=== PATIENT | female | born 1980 | race Caucasian/White ===

== ENCOUNTER 2020-07-16 11:30 | Observation (INO) ==
[2020-07-16 12:14] LABS: Basophils % 0.2 % (0.0-0.8); Eosinophils # 0.3 10*3/uL (0.0-0.87); Eosinophils % 4.1 % (0.00-10.9); Hematocrit 42.3 VOL% (35.7-47.0); Hemoglobin 13.6 GM/DL (12.0-16.0); Immature Granulocytes % 0.4 %; Immature Granulocytes Absolute 0.03 #; Lymphocytes # 1.6 10*3/uL (1.4-4.0); Lymphocytes % 19.1 % (21.3-54.2); Mean Corpuscular HGB Conc 32.2 GM/DL (32-36); Mean Corpuscular Volume 84.6 FL (87-102); Mean Platelet Volume 9.9 FL (9.6-12.0); Monocytes % 6.7 % (1.7-12.7); Neutrophils % 69.5 % (38.7-73.9); Platelet Count 255 T/CUMM (130-400); Red Cell Distribution Width 14.6 % (9.3-17.3); White Blood Count 8.4 T/CUMM (4-12)
[2020-07-16 12:18] LABS: Albumin 3.7 G/DL (3.4-5.0); Bilirubin,Total 0.4 MG/DL (0.2-1.0); Calcium 8.8 MG/DL (8.5-10.1); Osmolality,Calculated 275.7 MOS/KG (273-304); Total Protein 7.6 G/DL (6.4-8.3)
[2020-07-16] MEDS ORDERED: ATORVASTATIN 40 MG TABLET PO STA (13:28)
[2020-07-16 16:14] LABS: Troponin I < 0.015 NG/ML (0.00-0.045)
[2020-07-16] MEDS ORDERED: ACETAMINOPHEN 325 MG TABLET PO PRN (16:32)
[2020-07-16] MEDS ORDERED: ONDANSETRON 4 MG/2 ML VIAL IV PRN (16:32)
[2020-07-16] MEDS: DEXTROSE 5% NACL 0.45% 1,000 ML IV SCH (17:48)
[2020-07-17] MEDS: DEXTROSE 5% NACL 0.45% 1,000 ML IV SCH ×5 (03:35→22:15)
[2020-07-17] MEDS ORDERED: DIAZEPAM 5 MG TABLET PO ONE (08:01)
[2020-07-17] MEDS ORDERED: GABAPENTIN 400 MG CAPSULE PO ONE (08:01)
[2020-07-17] MEDS ORDERED: LACTATED RINGERS 1,000 ML IV SCH (08:30)
[2020-07-17 09:45] LABS: Risk Ratio 4.14; VLDL CHOLESTEROL 28.8 MG/DL
[2020-07-17] MEDS ORDERED: TISSUE ADHESIVE 1 EACH APPLICATOR TOP ONE (10:53)
[2020-07-17] MEDS ORDERED: LIDOCAINE 1%/EPI INJ 20 ML VIAL ONE (10:53)
[2020-07-17] MEDS ORDERED: BUPIVACAINE MPF 0.25% 30 ML VIAL ONE (10:53)
[2020-07-17] MEDS: PANTOPRAZOLE 40 MG TABLET PO SCH (11:23)
[2020-07-17] MEDS ORDERED: CLINDAMYCIN INJ 50 ML IV ONE (11:56)
[2020-07-17] MEDS ORDERED: fentaNYL 100 MCG/2 ML VIAL ONE (12:51)
[2020-07-17] MEDS ORDERED: KETOROLAC 30 MG/1 ML VIAL ONE (12:51)
[2020-07-17] MEDS ORDERED: ONDANSETRON 4 MG/2 ML VIAL ONE (12:51)
[2020-07-17] MEDS ORDERED: DEXAMETHASONE 4 MG/1 ML VIAL ONE (12:51)
[2020-07-17] MEDS ORDERED: SEVOFLURANE 1 UNIT/15 MINUTE INH ONE (12:51)
[2020-07-17] MEDS ORDERED: propofoL 200 MG/20 ML VIAL IV ONE (12:51)
[2020-07-17] MEDS ORDERED: LIDOCAINE 2% 5 ML VIAL ONE (12:51)
[2020-07-17] MEDS ORDERED: MIDAZOLAM 2 MG/2 ML VIAL ONE (12:51)
[2020-07-17] MEDS ORDERED: ROCURONIUM 100 MG/10 ML VIAL IV ONE (12:52)
[2020-07-17] MEDS ORDERED: SUCCINYLCHOLINE 200 MG/10 ML VIAL ONE (12:52)
[2020-07-17] MEDS ORDERED: ALBUTEROL/IPRATROPIUM 3 ML NEB RESP TX ONE ×2 (12:53→13:20)
[2020-07-17] MEDS ORDERED: HYDROmorphone 2 MG/1 ML VIAL ONE (13:33)
[2020-07-17] MEDS ORDERED: HYDROmorphone 2 MG/1 ML VIAL IV PRN (13:38)
[2020-07-17] MEDS ORDERED: FUROSEMIDE 40 MG TABLET PO PRN (15:07)
[2020-07-17] MEDS ORDERED: ALBUTEROL 2.5 MG/3 ML NEB RESP TX PRN (15:07)
[2020-07-17] MEDS ORDERED: ONDANSETRON 4 MG/2 ML VIAL IV PRN (18:12)
[2020-07-17] MEDS ORDERED: ATORVASTATIN 80 MG TABLET PO SCH (21:00)
[2020-07-18] MEDS: DEXTROSE 5% NACL 0.45% 1,000 ML IV SCH (06:26)
[2020-07-18] MEDS ORDERED: LOSARTAN 25 MG TABLET PO SCH (09:00)
[2020-07-18] MEDS ORDERED: CHOLECALCIFEROL 1,000 UNIT TABLET PO SCH (09:00)
[2020-07-18] MEDS: PANTOPRAZOLE 40 MG TABLET PO SCH (09:11)
[2020-07-18 12:32] VITALS: BP 128/69
== END 2020-07-18 13:11 | disposition home or self-care (01) ==
LOC: N.EDINP 11:30 → N.ED 11:30 → N.TELEN 18:27
PROVIDERS: ADMIT Surgery; ATTEND Surgery
PROC: LAPCHOL (2020-07-17 11:42)